=== PATIENT | male | born 1950 | race Two or more races ===

== ENCOUNTER 2021-11-18 05:50 | Day surgery (SDC) | payer OTHER ==
[~2021-11-18 05:50] MED LIST: CRESTOR5 MG PO; GLUCOTROL XL5 MG PO; GLUMETZA1000 MG PO; JANUVIA100 MG PO; LEVOTHYROXINE25 MCG; LOSARTAN-HCTZ1 EAC1 PO; TIAZAC360 MG PO
== END 2021-11-18 13:55 | disposition home or self-care (01) ==
LOC: CIR.AMB 05:50
PROVIDERS: ATTEND Orthopaedic Surgery Hand Surgery
DX: M72.0 Palmar fascial fibromatosis [Dupuytren] (principal)